=== PATIENT | male | born 1980 | race Caucasian/White ===

== ENCOUNTER 2023-03-01 11:16 | Emergency (ER) | payer OTHER ==
[~2023-03-01] VITALS: Ht 188 cm; Wt 84.1 kg
[2023-03-01 12:35] VITALS: TEMP 98.2
[2023-03-01 13:46] VITALS: BP 128/72; PULSE 74; RESP 16
== END 2023-03-01 14:06 | disposition home or self-care (01) ==
LOC: EMS 11:30
DX: S40.011A Contusion of right shoulder, initial encounter (principal); E78.00 Pure hypercholesterolemia, unspecified; X58.XXXA Exposure to other specified factors, initial encounter; Y93.B9 Activity, other involving muscle strengthening exercises; Y92.89 Other specified places as the place of occurrence of the external cause; Y99.8 Other external cause status
CPT/HCPCS: 99281; Z7502